=== PATIENT | female | born 1980 | race Caucasian/White ===

== ENCOUNTER 2016-12-09 10:56 | Emergency (ER) | payer MEDICAID ==
[2016-12-09 11:09] VITALS: O2SAT 99
--- NOTE | 2016-12-09 11:32 | ERPHSYRPT ---
- History of Present Illness Time Seen by Provider: 12/09/16 11:27 Source: patient, family Exam Limitations: no limitations Patient Subjective Stated Complaint: vomiting this am. passed out yesterday. Triage Nursing Assessment: states started getting dizzy on night and was seeen in [facility] ER. states she 'passed out' yesterday. this am she vomited x2 with small blood clots in it. c/o lower abd pain (no change with bowels/vomiting ). skin warm and dry. normal bm yesterday Physician History: vomiting this am. passed out yesterday. states started getting dizzy on night and was seeen in [facility] ER. states she 'passed out' yesterday. this am she vomited x2 with small blood clots in it. c/o lower abd pain (no change with bowels/vomiting). Timing/Duration: day(s) (2 days ago) Severity: moderate Associated Symptoms: nausea, vomiting, malaise, syncope Allergies/Adverse Reactions: Penicillins Allergy (Verified 12/09/16 11:09) Home Medications: Ferrous Sulfate [Iron] 325 mg PO TID 12/09/16 [History] Hx Tetanus, Diphtheria Vaccination/Date Given: Yes Hx Influenza Vaccination/Date Given: Yes Hx Pneumococcal Vaccination/Date Given: Yes Immunizations Up to Date: Yes - Review of Systems Constitutional: No Fever, No Chills Eyes: No Symptoms Ears, Nose, & Throat: No Symptoms Respiratory: No Cough, No Dyspnea Cardiac: No Chest Pain, No Edema, No Syncope Abdominal/Gastrointestinal: No Abdominal Pain, No Nausea, No Vomiting, No Diarrhea Genitourinary Symptoms: No Dysuria Musculoskeletal: No Back Pain, No Neck Pain Skin: No Rash Neurological: Dizziness, No Focal Weakness, No Sensory Changes, No Speech Changes Psychological: No Symptoms Endocrine: No Symptoms All Other Systems: Reviewed and Negative - Past Medical History Pertinent Past Medical History: Yes Other Medical History: anemia - Past Surgical History Past Surgical History: Yes Female Surgical History: Section Other Surgical History: nasal polyps removed - Social History Smoking Status: Never smoker Exposure to second hand smoke: Yes Drug Use: none Patient Lives Alone: No - Female History Hx Last Menstrual Period: 11/27/2016 - Nursing Vital Signs Nursing Vital Signs: Initial Vital Signs Temperature 97.8 F Temperature Source Oral Pulse Rate 88 Respiratory Rate 18 Blood Pressure [Right Arm] 169/77 Pain Intensity 7 - Physical Exam General Appearance: no apparent distress, alert Eye Exam: PERRL/EOMI, eyes nml inspection Ears, Nose, Throat Exam: normal ENT inspection, TMs normal, pharynx normal, moist mucous membranes Neck Exam: normal inspection, non-tender, supple, full range of motion Respiratory Exam: normal breath sounds, lungs clear, No respiratory distress Cardiovascular Exam: regular rate/rhythm, normal heart sounds, normal peripheral pulses Gastrointestinal/Abdomen Exam: soft, normal bowel sounds, No tenderness, No mass Back Exam: normal inspection, normal range of motion, No CVA tenderness, No vertebral tenderness Extremity Exam: normal inspection, normal range of motion, pelvis stable Neurologic Exam: alert, oriented x 3, cooperative, normal mood/affect, nml cerebellar function, nml station & gait, sensation nml, No motor deficits Skin Exam: normal color, warm, dry, No rash Lymphatic Exam: No adenopathy SpO2: 99 Oxygen Delivery: Room Air - Course Nursing assessment & vital signs reviewed: Yes - Progress Progress: unchanged Progress Note: 12/09/16 11:28 Patient was eating [facility] emergency room 2 days ago where she underwent extensive evaluation including CT head and laboratory evaluation. All those records reviewed and it appears that patient has Iron deficiency anemia due to urogenital bleeding. Patient and her mother were explained about laboratory data and medical advice to seek care from [facility]PUTING CONSULTANT physician for further treatment including possible hysterectomy. Counseled pt/family regarding: diagnosis, need for follow-up - Departure Time of Disposition: 11:30 Departure Disposition: Home Clinical Impression: Iron deficiency anemia due to chronic blood loss Condition: Stable Critical Care Time: No Referrals: CANDY GALLEGOS [COURTESY STAFF] - ALEJANDRA KULKARNI [NON-STAFF PHY W/O PRIVILEGES] - Additional Instructions: Please follow the instructions given to you. Please take your medication as prescribed if given. If symptoms recur or get worse, come back to the emergency room if you cannot reach your primary care physician, or call your primary care physician for an appointment. Again if your symptoms get worse, come back to the emergency room. Thanks for visiting emergency room, and let us take care of you.. Follow-up with your COMPUTING CONSULTANT doctor, as well as your primary care physician in next 1-2 days for further treatment plan including consideration of hysterectomy to prevent further more chronic bleeding and to alleviate anemia Prescriptions: Vit/Fe Fum/Jus/FA [ Mr 90 Fe Tablet SA] 1 each PO TID #90 tablet.er
[2016-12-09 11:41] VITALS: BP 138/65; PULSE 71
== END 2016-12-09 11:40 | disposition home or self-care (01) ==
LOC: ED 10:56
DX: D50.0 Iron deficiency anemia secondary to blood loss (chronic) (principal)
CPT/HCPCS: 99281